=== PATIENT | male | born 1990 | race Caucasian/White ===

== ENCOUNTER 2020-07-01 18:36 | Emergency (ER) | payer SELFPAY ==
[~2020-07-01] VITALS: Ht 172.7 cm; Wt 54.4 kg
[2020-07-01 18:49] VITALS: BP_SYST 145
--- NOTE | 2020-07-01 18:56 | NUR ---
Patient to [facility] 7 to [facility] for evaluation. Side rails up. Report given to ODESSA Morgan. Addendum: 07/01/20 at 1858 by MAGDALENA Report given to ODESSA Norwood.
--- NOTE | 2020-07-01 19:00 | NUR ---
BON Das at bedside examining patient.
--- NOTE | 2020-07-01 19:00 | NUR ---
pt a&o x4 c/o of right middle abdominal pain, nonradiating, intermittent, rated a 6 out of 10. pt was seen last week at a clinic and stated he was prescribed pepcid for gastritis. pt states today the pain became unbearable. pt states he has not taken anything for the pain and denies alleviating factors.
[2020-07-01 19:21] LABS: BASOPHILS % (AUTO) 0.8 % (0.0-2.0); EOSINOPHILS % (AUTO) 0.6 % (0.0-4.0); HEMATOCRIT 44.7 % (36-54); HEMOGLOBIN 15.3 g/dL (14.0-18.0); LYMPHOCYTES # (AUTO) 1.8 K/uL (1.0-5.5); LYMPHOCYTES % (AUTO) 29.9 % (20.5-51.5); MEAN CORPUSCULAR HEMOGLOBIN 30 pg (27-31); MEAN CORPUSCULAR HGB CONC 34 % (32-36); MEAN CORPUSCULAR VOLUME 88 fL (79.0-98.0); MONOCYTES # (AUTO) 0.4 K/uL (0.0-1.0); NEUTROPHILS # (AUTO) 3.6 K/uL (1.8-7.7); NEUTROPHILS % (AUTO) 61.7 % (40.0-70.0); PLATELET COUNT (AUTO) 183 K/uL (130-430); RED BLOOD CELL COUNT(AUTO) 5.08 MIL/uL (4.2-6.2); RED CELL DISTRIBUTION WIDTH 12.6 % (9.0-15.0); WHITE BLOOD COUNT (AUTO) 5.9 K/uL (4.8-10.8)
--- NOTE | 2020-07-01 19:22 | NUR ---
PATIENT TAKEN TO ULTRASOUND.
[2020-07-01 19:34] LABS: CALCIUM 9.7 mg/dL (8.4-11.0); CREATININE 0.98 mg/dL (0.55-1.30); POTASSIUM 3.5 mmol/L (3.5-5.1)
[2020-07-01 19:39] LABS: ALBUMIN 5.1 g/dL (3.4-4.8); TOTAL BILIRUBIN 0.9 mg/dL (0.0-1.0)
[2020-07-01] MEDS ORDERED: KETOROLAC TROMETHAMINE 30 MG VIAL IM ONE (20:45)
--- NOTE | 2020-07-01 20:50 | NUR ---
Patient transported to radiology via WALKING, accompanied by STAFF.
[2020-07-01 21:16] LABS: BILIRUBIN,URINE NEGATIVE (NEGATIVE); BLOOD, URINE NEGATIVE (NEGATIVE); CLARITY/URINE CLEAR (CLEAR); GLUCOSE,URINE NEGATIVE (NEGATIVE); KETONES,URINE 2+ (NEGATIVE); LEUKOCYTE ESTERASE ,URINE NEGATIVE (NEGATIVE); NITRITE, URINE NEGATIVE (NEGATIVE); PROTEIN URINE NEGATIVE (NEGATIVE); UROBILINOGEN,URINE 0.2 (0.2-1.0)
[2020-07-01 21:30] LABS: COLOR,URINE STRAW (YELLOW)
[2020-07-01 21:40] VITALS: BP_SYST 133
--- NOTE | 2020-07-01 21:40 | NUR ---
Patient given written and verbal discharge instructions and verbalizes understanding. ER MD discussed with patient the results and treatment provided. Patient in stable condition. ID arm band removed. Rx of MIRALAX given. Patient educated on pain management and to follow up with PMD. Pain Scale 2/10. Opportunity for questions provided and answered. Medication side effect fact sheet provided.
== END 2020-07-01 21:40 | disposition home or self-care (01) ==
LOC: SED 18:36
DX: K59.00 Constipation, unspecified (principal)
CPT/HCPCS: 36415; 74176; 76700; 80053; 81003; 83690; 85025; 96372; 99285; J1885